=== PATIENT | male | born 1980 | race Caucasian/White ===

== ENCOUNTER 2016-10-27 11:47 | Emergency (ER) | payer MEDICARE, MEDICAID ==
--- NOTE | 2016-10-27 11:58 | Emergency Department Record ---
History of Present Illness - General Stated Complaint: FEVER/COUGH/BODY ACHE Time Seen by Provider: 10/27/16 11:54 Source: Patient Mode of Arrival: Ambulatory Limitations: No limitations - History of Present Illness Initial Comments: 36 yo male presents to ED with a CC of low-grade fever, non-productive cough symptoms, and body aches for the past 3-4 days. Patient reports numerous ill contacts at home, recent exposure to strep, influenza, and "walking pneumnonia" . Patient reports a history of muscular dystrophy. MD Complaint: Cough, Fever, Nasal congestion, Sore throat Onset/Timin -: Days(s) Severity: Moderate Quality: Aching Consistency: Intermittent Improves With: Nothing Worsens With: Nothing Context: Sick contacts - Related Data Previous Rx's Medication Instructions Recorded Prednisone [Prednisone 20Mg] 20 mg PO TID #15 tab 10/27/16 Allergies Allergy/AdvReac Type Severity Reaction Status Date / Time atorvastatin calcium Allergy HIVES Verified 04/07/15 11:04 [From Lipitor] Review of Systems Constitutional: Reports: Fever, Malaise. Denies: Chills, Night sweats Eyes: Denies: Eye discharge, Eye pain ENT: Reports: Congestion, Throat pain. Denies: Ear pain, Epistaxis Respiratory: Reports: Cough. Denies: Dyspnea, Hemoptysis Cardiovascular: Denies: Chest pain, Dyspnea on exertion Endocrine: Denies: Fatigue, Heat or cold intolerance Gastrointestinal: Denies: Nausea, Vomiting Genitourinary: Denies: Incontinence, Retention Musculoskeletal: Denies: Arthralgia, Back pain, Gout, Joint swelling Skin: Denies: Bruising, Change in color Neurological: Denies: Abnormal gait, Confusion, Headache, Seizure Psychiatric: Denies: Anxiety Hematological/Lymphatic: Denies: Anemia, Blood Clots Past Medical History - SOCIAL HISTORY Smoking Status: Never smoker - RESPIRATORY Hx Respiratory Disorders: No - CARDIOVASCULAR Hx Cardio Disorders: Yes Hx Hypertension: Yes - NEURO Hx Neuro Disorders: Yes Hx Neuropathy: Yes - GI Hx GI Disorders: No - Hx Genitourinary Disorders: No - ENDOCRINE Hx Endocrine Disorders: No - MUSCULOSKELETAL Hx Musculoskeletal Disorders: Yes Hx Musculoskeletal Disease: Yes Comment:: [place] Muscle disorder - PSYCH Hx Psych Problems: No - HEMATOLOGY/ONCOLOGY Hx Hematology/Oncology Disorders: No Family Medical History Hx Heart Disease: Father Physical Exam - General General Appearance: Alert, Oriented x3, Cooperative, No acute distress Limitations: No limitations - Head Head exam: Atraumatic, Normocephalic, Normal inspection Head exam detail: negative: Abrasion, Contusion, Danielle's sign, General tenderness, Hematoma, Laceration - Eye Eye exam: Normal appearance. negative: Conjunctival injection, Periorbital swelling, Periorbital tenderness, Scleral icterus - ENT Ear exam: negative: Auricular hematoma, Auricular trauma Nasal Exam: negative: Active bleeding, Discharge, Dried blood, Foreign body Mouth exam: negative: Drooling, Laceration, Muffled voice, Tongue elevation Throat exam: negative: Tonsillar erythema, Tonsillomegaly, Tonsillar exudate, R peritonsillar mass, L peritonsillar mass - Neck Neck exam: Normal inspection. negative: Meningismus, Tenderness - Respiratory Respiratory exam: Normal lung sounds bilaterally. negative: Rales, Respiratory distress, Rhonchi, Stridor - Cardiovascular Cardiovascular Exam: Regular rate, Normal rhythm, Normal heart sounds - GI/Abdominal GI/Abdominal exam: Soft. negative: Rebound, Rigid, Tenderness - Rectal Rectal exam: Deferred - exam: Deferred - Extremities Extremities exam: Normal inspection. negative: Pedal edema, Tenderness - Back Back exam: Denies: CVA tenderness (R), CVA tenderness (L) - Neurological Neurological exam: Alert, Normal gait, Oriented X3 - Psychiatric Psychiatric exam: Normal affect, Normal mood - Skin Skin exam: Normal color. negative: Abrasion Type of lesion: negative: abrasion Course - Reevaluation(s) Reevaluation #1: 10/27/16 12:35 CXR: No acute process Reevaluation #2: 10/27/16 13:01 Influenza, strep are negative. Patient was updated on all results and the fact that his symptoms are likely viral in origin. Patient appears stable for discharge at this time with Prednisone for his lung inflammation and cough symptoms. 10/27/16 13:10 Disposition Disposition: Discharge Clinical Impression: URI (upper respiratory infection) Qualifiers: URI type: unspecified URI Qualified Code(s): J06.9 - Acute upper respiratory infection, unspecified Disposition: Home, Self-Care Condition: (2) Stable Instructions: Upper Respiratory Infection (ED) Additional Instructions: Return to ED if your symptoms worsen or if you have any concerns. Follow-up with your family doctor in 3-5 days as directed. Prescriptions: Prednisone [Prednisone 20Mg] 20 mg PO TID #15 tab Forms: Patient Portal Access Time of Disposition: 13:05
[2016-10-27 13:01] LABS: INFLUENZA A NEGATIVE (NEGATIVE); INFLUENZA B NEGATIVE (NEGATIVE)
--- NOTE | 2016-10-30 15:05 | RADIOLOGY REPORT ---
DATE: 10/27/2016. EXAM: PORTABLE CHEST. HISTORY: Chest pain. TECHNIQUE: Portable frontal view of the chest. COMPARISON: 08/13/14 chest. FINDINGS: Heart size is normal. The lungs are clear. No pneumothorax. IMPRESSION: NEGATIVE CHEST. JOB NUMBER: [id number] MTDD
== END 2016-10-27 13:17 | disposition home or self-care (01) ==
LOC: ER 11:47
DX: J06.9 Acute upper respiratory infection, unspecified (principal); R05 Cough
CPT/HCPCS: 71010; 87400; 87880; 99283

== ENCOUNTER 2018-12-07 18:44 | Emergency (ER) | payer MEDICARE, MEDICAID ==
--- NOTE | 2018-12-07 18:54 | Emergency Department Record ---
History of Present Illness - General Chief complaint: Allergic Reaction Stated complaint: REACTION TO MEDICATION Time Seen by Provider: 12/07/18 18:48 Source: Patient Mode of Arrival: Wheelchair Limitations: No limitations - History of Present Illness Initial Comments: 38 yo male presents to ED for evaluation of numbness to the tongue, face after taking a new medication tonight (90 minutes ago) for nerve pain. Patient denies rash, difficulty in breathing, chest discomfort, throat swelling, or wheezing symptoms on examination. Patient denies focal deficit on examination, reports a history of muscular dystrophy. MD Complaint: Other Onset/Timin -: Minutes(s) Exposure: Medication Symptoms: Other Severity: Mild Treatment Prior to Arrival: None Previous Allergy History: None - Related Data Allergies Allergy/AdvReac Type Severity Reaction Status Date / Time atorvastatin calcium Allergy HIVES Unverified 12/07/18 18:13 [From Lipitor] gabapentin AdvReac Mild initially Unverified 12/07/18 18:13 itching, throat swelling, saying wrong words, Travel Screening - Travel/Exposure Within Last 30 Days Have you traveled within the last 30 days?: No Review of Systems Constitutional: Denies: Chills, Fever, Malaise, Night sweats Eyes: Denies: Eye discharge, Eye pain ENT: Denies: Congestion, Ear pain, Epistaxis Respiratory: Denies: Cough, Dyspnea Cardiovascular: Denies: Chest pain, Dyspnea on exertion Endocrine: Denies: Fatigue, Heat or cold intolerance Gastrointestinal: Denies: Abdominal pain, Nausea, Vomiting Genitourinary: Denies: Incontinence, Retention Musculoskeletal: Denies: Arthralgia, Back pain, Gout, Joint swelling Skin: Denies: Bruising, Change in color Neurological: Reports: Numbness. Denies: Abnormal gait, Confusion, Headache, Seizure Psychiatric: Denies: Anxiety Hematological/Lymphatic: Denies: Anemia, Blood Clots Past Medical History - SOCIAL HISTORY Smoking Status: Never smoker - RESPIRATORY Hx Respiratory Disorders: No - CARDIOVASCULAR Hx Cardio Disorders: Yes Hx Hypertension: Yes - NEURO Hx Neuro Disorders: Yes Hx Neuropathy: Yes - GI Hx GI Disorders: No - Hx Genitourinary Disorders: No - ENDOCRINE Hx Endocrine Disorders: No - MUSCULOSKELETAL Hx Musculoskeletal Disorders: Yes Hx Musculoskeletal Disease: Yes Comment:: [place] Muscle disorder - PSYCH Hx Psych Problems: No - HEMATOLOGY/ONCOLOGY Hx Hematology/Oncology Disorders: No Family Medical History Any Significant Family History?: Yes Hx Heart Disease: Father Physical Exam - General General Appearance: Alert, Oriented x3, Cooperative, No acute distress Limitations: No limitations - Head Head exam: Atraumatic, Normocephalic, Normal inspection Head exam detail: negative: Abrasion, Contusion, Danielle's sign, General tenderness, Hematoma, Laceration - Eye Eye exam: Normal appearance. negative: Conjunctival injection, Periorbital swelling, Periorbital tenderness, Scleral icterus - ENT Ear exam: negative: Auricular hematoma, Auricular trauma Nasal Exam: negative: Active bleeding, Discharge, Dried blood, Foreign body Mouth exam: negative: Drooling, Laceration, Muffled voice, Tongue elevation - Neck Neck exam: Normal inspection. negative: Meningismus, Tenderness - Respiratory Respiratory exam: Normal lung sounds bilaterally. negative: Rales, Respiratory distress, Rhonchi, Stridor - Cardiovascular Cardiovascular Exam: Regular rate, Normal rhythm, Normal heart sounds - GI/Abdominal GI/Abdominal exam: Soft. negative: Rebound, Rigid, Tenderness - Rectal Rectal exam: Deferred - exam: Deferred - Extremities Extremities exam: Normal inspection. negative: Pedal edema, Tenderness - Back Back exam: Denies: CVA tenderness (R), CVA tenderness (L) - Neurological Neurological exam: Alert, CN II-XII intact, Normal gait, Oriented X3. negative : Motor sensory deficit - Psychiatric Psychiatric exam: Normal affect, Normal mood - Skin Skin exam: Normal color. negative: Abrasion Type of lesion: negative: abrasion Course Vital Signs 12/07/18 18:47 Temperature 98.8 F Pulse Rate 99 H Respiratory 20 Rate Blood Pressure 146/118 Pulse Ox 98 - Reevaluation(s) Reevaluation #1: 12/07/18 18:53 Patient was seen and examined, no evidence for anaphylaxis on examination. Will observe in ED as there is no evidence for allergic reaction based on examination, symptoms appear c/w adverse medication effect. Reevaluation #2: 12/07/18 19:21 Patient reports that his symptoms are improving, will continue to monitor. Reevaluation #3: 12/07/18 20:06 Patient was reassessed, reports that his symptoms have nearly completely resolved. Patient appears stable for discharge at this time. Disposition Disposition: Discharge Clinical Impression: Adverse effects of medication Qualifiers: Encounter type: initial encounter Qualified Code(s): T50.905A - Adverse effect of unspecified drugs, medicaments and biological substances, initial encounter Disposition: Home, Self-Care Condition: (2) Stable Instructions: Adverse Drug Reaction (ED) Additional Instructions: Return to ED if your symptoms worsen or if you have any concerns. Do not take any more of your Nortryptaline. Follow-up with your family doctor in 3-5 days as directed. Forms: Patient Portal Access Time of Disposition: 20:07 Quality - Quality Measures Quality Measures: N/A - Blood Pressure Screening Does Patient Have Any of the Following: No Blood Pressure Classification: Hypertensive Reading Systolic Measurement: 146 Diastolic Measurement: 118 Screening for High Blood Pressure: < First Hypertensive BP, F/U Documented > [ [id number]] First Hypertensive Follow-up Interventions: Referral to alternative/primary care provider.
== END 2018-12-07 20:13 | disposition home or self-care (01) ==
LOC: ER 18:44
DX: T43.015A Adverse effect of tricyclic antidepressants, initial encounter (principal); R20.0 Anesthesia of skin; G60.0 Hereditary motor and sensory neuropathy
CPT/HCPCS: 99282; 99283